=== PATIENT | male | born 1945 | race Asian ===

== ENCOUNTER 2016-08-24 07:08 | Outpatient (CLI) | payer OTHER ==
[~2016-08-24 07:08] MED LIST: ASA LOW STR81 MG PO; LISI20TA24 PO; PRINIVIL10 MG OR; SIMV40TA57; SIMV40TA57 PO
[2016-08-24 08:21] LABS: PLATELET COUNT 212 K/uL (142-355)
[2016-08-24 08:54] LABS: POTASSIUM 3.7 mmol/L (3.6-5.2)
== END 2016-08-24 08:30 | disposition home or self-care (01) ==
LOC: LABW 07:08
PROVIDERS: Internal Medicine
DX: E78.4 Other hyperlipidemia (principal); I10 Essential (primary) hypertension; E03.8 Other specified hypothyroidism; Z12.5 Encounter for screening for malignant neoplasm of prostate
CPT/HCPCS: 80053; 80061; 81000; 84153; 84439; 84443; 85027

== ENCOUNTER 2017-04-29 07:54 | Outpatient (CLI) | payer OTHER ==
[2017-04-29 08:18] LABS: PLATELET COUNT 209 K/uL (142-355)
[2017-04-29 08:39] LABS: POTASSIUM 3.5 mmol/L (3.6-5.2)
== END 2017-04-29 20:03 | disposition home or self-care (01) ==
LOC: LABW 07:54
PROVIDERS: Internal Medicine
DX: I10 Essential (primary) hypertension (principal)
CPT/HCPCS: 36415; 80053; 80061; 81000; 84439; 84443; 85027

== ENCOUNTER 2017-12-22 10:27 | Outpatient (CLI) | payer OTHER | END 2017-12-22 19:55 | disposition home or self-care (01) | LOC: LABW 10:27 | DX: R35.1 Nocturia (principal) | CPT/HCPCS: 36415; 84153 ==

== ENCOUNTER 2018-04-06 09:02 | Outpatient (CLI) | payer OTHER | END 2018-04-06 22:17 | disposition home or self-care (01) | LOC: CT 09:02 | DX: Z12.2 Encounter for screening for malignant neoplasm of respiratory organs (principal); F17.200 Nicotine dependence, unspecified, uncomplicated; J43.9 Emphysema, unspecified ==

== ENCOUNTER 2018-04-28 10:06 | Outpatient (CLI) | payer OTHER ==
[2018-04-28 10:35] LABS: PLATELET COUNT 179 K/uL (142-355)
[2018-04-28 11:49] LABS: POTASSIUM 4.1 mmol/L (3.6-5.2)
== END 2018-04-28 19:46 | disposition home or self-care (01) ==
LOC: LABW 10:06
PROVIDERS: Physician Assistant
DX: I10 Essential (primary) hypertension (principal); E78.5 Hyperlipidemia, unspecified; E03.9 Hypothyroidism, unspecified; R35.1 Nocturia; Z79.899 Other long term (current) drug therapy; E55.9 Vitamin D deficiency, unspecified
CPT/HCPCS: 36415; 80053; 80061; 82306; 83036; 84153; 84439; 84443; 85027

== ENCOUNTER 2019-01-06 09:32 | Outpatient (CLI) | payer OTHER | END 2019-01-06 19:09 | disposition home or self-care (01) | LOC: US 09:32 | DX: R09.89 Other specified symptoms and signs involving the circulatory and respiratory systems (principal) ==

== ENCOUNTER 2019-05-21 07:38 | Outpatient (CLI) | payer OTHER ==
[2019-05-21 07:58] LABS: PLATELET COUNT 217 K/uL (142-355)
[2019-05-21 08:33] LABS: POTASSIUM 3.4 mmol/L (3.6-5.2)
== END 2019-05-21 19:05 | disposition home or self-care (01) ==
LOC: LABW 07:38
PROVIDERS: Internal Medicine
DX: I10 Essential (primary) hypertension (principal); E78.49 Other hyperlipidemia; E03.8 Other specified hypothyroidism; R79.89 Other specified abnormal findings of blood chemistry; E55.9 Vitamin D deficiency, unspecified
CPT/HCPCS: 36415; 80053; 80061; 81000; 82306; 84439; 84443; 85027

== ENCOUNTER 2019-11-02 07:27 | Outpatient (CLI) | payer OTHER ==
[2019-11-02 07:42] LABS: PLATELET COUNT 186 K/uL (142-355)
[2019-11-02 08:04] LABS: POTASSIUM 3.6 mmol/L (3.6-5.2)
== END 2019-11-02 20:42 | disposition home or self-care (01) ==
LOC: LABW 07:27
PROVIDERS: Internal Medicine
DX: I10 Essential (primary) hypertension (principal); E78.49 Other hyperlipidemia; E03.8 Other specified hypothyroidism
CPT/HCPCS: 36415; 80053; 80061; 84439; 84443; 85027

== ENCOUNTER 2020-04-28 07:41 | Outpatient (CLI) | payer OTHER ==
[2020-04-28 08:08] LABS: PLATELET COUNT 219 K/uL (142-355)
[2020-04-28 09:00] LABS: POTASSIUM 3.5 mmol/L (3.6-5.2)
== END 2020-04-28 19:23 | disposition home or self-care (01) ==
LOC: LABW 07:41
PROVIDERS: ATTEND Internal Medicine
DX: E03.8 Other specified hypothyroidism (principal); Z12.5 Encounter for screening for malignant neoplasm of prostate; I10 Essential (primary) hypertension; E78.49 Other hyperlipidemia
CPT/HCPCS: 36415; 80053; 80061; 81000; 84153; 84439; 84443; 85027

== ENCOUNTER 2020-12-14 08:04 | Outpatient (CLI) | payer OTHER ==
[2020-12-14 08:28] LABS: PLATELET COUNT 214 K/uL (142-355)
[2020-12-14 08:44] LABS: POTASSIUM 3.5 mmol/L (3.6-5.2)
== END 2020-12-14 19:06 | disposition home or self-care (01) ==
LOC: LABW 08:04
PROVIDERS: ATTEND Internal Medicine
DX: I10 Essential (primary) hypertension (principal); E03.8 Other specified hypothyroidism; R79.89 Other specified abnormal findings of blood chemistry; E55.9 Vitamin D deficiency, unspecified
CPT/HCPCS: 36415; 80053; 80061; 81000; 82306; 84439; 84443; 85027

== ENCOUNTER 2021-03-15 07:57 | Outpatient (CLI) | payer OTHER ==
[2021-03-15 08:42] LABS: POTASSIUM 3.5 mmol/L (3.6-5.2)
== END 2021-03-15 19:20 | disposition home or self-care (01) ==
LOC: LABW 07:57
PROVIDERS: ATTEND Internal Medicine
DX: I10 Essential (primary) hypertension (principal); E03.8 Other specified hypothyroidism
CPT/HCPCS: 36415; 80053; 84439; 84443

== ENCOUNTER 2021-11-07 08:06 | Outpatient (CLI) | payer OTHER ==
[2021-11-07 08:30] LABS: PLATELET COUNT 185 K/uL (142-355)
[2021-11-07 09:29] LABS: POTASSIUM 3.6 mmol/L (3.6-5.2)
== END 2021-11-07 19:58 | disposition home or self-care (01) ==
LOC: LABW 08:06
PROVIDERS: ATTEND Internal Medicine
DX: I10 Essential (primary) hypertension (principal); E78.49 Other hyperlipidemia; E03.8 Other specified hypothyroidism; R79.89 Other specified abnormal findings of blood chemistry; Z12.5 Encounter for screening for malignant neoplasm of prostate; E55.9 Vitamin D deficiency, unspecified; N40.0 Benign prostatic hyperplasia without lower urinary tract symptoms
CPT/HCPCS: 36415; 80053; 80061; 81002; 82306; 84153; 84439; 84443; 85027

== ENCOUNTER 2022-05-08 07:38 | Outpatient (CLI) | payer OTHER ==
[2022-05-08 08:06] LABS: PLATELET COUNT 228 K/uL (142-355)
[2022-05-08 08:44] LABS: POTASSIUM 3.1 mmol/L (3.6-5.2)
== END 2022-05-08 18:54 | disposition home or self-care (01) ==
LOC: LABW 07:38
PROVIDERS: ATTEND Internal Medicine
DX: I10 Essential (primary) hypertension (principal); E03.8 Other specified hypothyroidism
CPT/HCPCS: 36415; 80053; 80061; 81002; 84439; 84443; 85027

== ENCOUNTER 2022-10-19 15:00 | Emergency (ER) | payer OTHER ==
[~2022-10-19] VITALS: Ht 175.3 cm; Wt 79.4 kg
[2022-10-19 15:28] LABS: PLATELET COUNT 237 K/uL (142-355)
[2022-10-19 15:37] LABS: POTASSIUM 2.9 mmol/L (3.6-5.2)
[2022-10-19 15:43] LABS: PARTIAL THROMBOPLASTIN TIME 24.6 SECONDS (23.9-36.7)
[2022-10-19 18:55] VITALS: BP 164/70; TEMP 97.8
== END 2022-10-19 19:28 | disposition short-term general hospital (02) ==
LOC: ED 15:00
PROVIDERS: Family Medicine
DX: I95.9 Hypotension, unspecified (principal); R79.1 Abnormal coagulation profile
CPT/HCPCS: 80053; 82550; 84484; 85027; 85610; 85730; 93005; 99284; J0360; J2405

== ENCOUNTER 2022-10-22 14:18 | Outpatient (CLI) | payer OTHER ==
[2022-10-22 14:52] LABS: POTASSIUM 3.3 mmol/L (3.6-5.2)
[2022-10-22 15:42] LABS: PLATELET COUNT 266 K/uL (142-355)
== END 2022-10-22 20:33 | disposition home or self-care (01) ==
LOC: LABW 14:18
PROVIDERS: ATTEND Internal Medicine
DX: I10 Essential (primary) hypertension (principal)
CPT/HCPCS: 36415; 80053; 85027; 85379

== ENCOUNTER 2022-10-24 12:50 | Outpatient (CLI) | payer OTHER | END 2022-10-24 21:52 | disposition home or self-care (01) | LOC: MRI 12:50 | PROVIDERS: ATTEND Internal Medicine | DX: C31.0 Malignant neoplasm of maxillary sinus (principal) | CPT/HCPCS: A9576 ==